=== PATIENT | female | born 1975 | race African-American/Black ===

== ENCOUNTER 2017-06-02 16:51 | Emergency (ER) | payer SELFPAY ==
[~2017-06-02 16:51] MED LIST: AMOX1TAB61 PO; HYDR-2758 PO
[2017-06-02] MEDS ORDERED: ONDANSETRON ODT 4 MG TAB.RAPDIS. PO ONE (17:15)
[2017-06-02] MEDS ORDERED: ONDANSETRON PF 4 MG/2 ML VIAL. IV ONE (17:30)
[2017-06-02] MEDS ORDERED: IV NORMAL SALINE 1000ML BAG 1,000 ML IV ONE (17:30)
[2017-06-02 17:58] LABS: CALCIUM 7.6 mg/dL (8.5-10.1); GFR 74.3; POTASSIUM 3.6 mmol/L (3.5-5.1)
[2017-06-02 18:04] LABS: ALBUMIN 3.4 g/dL (3.4-5.0); ALBUMIN/GLOBULIN RATIO 0.7 (1.0-1.7); TOTAL BILIRUBIN 0.1 mg/dL (0.2-1.0); TOTAL PROTEIN 8.1 g/dL (6.4-8.2)
--- NOTE | 2017-06-02 18:05 | PHYS DOC ---
Past Medical History Past Medical History: Other Additional Past Medical Histor: eczema; herpes Past Surgical History: Alcohol Use: Occasionally Additional Information: DRINKING DAILY PER PATIENT REPORT Drug Use: None Social History Narrative: PT REFUSES TO ANSWER,STATES,"THAT'S TOO MUCH INFORMATION." Adult General Chief Complaint Chief Complaint: ALCOHOL INTOXICATION HPI HPI Patient is a 41 year old female who presents with alcohol intoxication. The patient states she drank a can of "punch" with alcohol today, states she suddenly felt unusual & nauseated. She refuses to state how much she drinks daily but states she does drink heavily. She reports history of drug addiction but denies current drug use. She denies trauma, fall, vomiting, abdominal pain. She denies suicidal ideation. She states she has history of situational anxiety. Review of Systems Review of Systems Constitutional: Denies fever or chills HENT: Denies nasal congestion or sore throat Respiratory: Denies cough or shortness of breath Cardiovascular: Denies chest pain GI: Reports nausea, denies abdominal pain or vomiting : Denies dysuria Musculoskeletal: Denies back pain or joint pain Integument: Denies rash Neurologic: Denies headache, focal weakness or sensory changes Current Medications Current Medications Current Medications Medications (Trade) Dose Ordered Sig/Dheeraj Start Time Stop Time Status Last Admin Dose Admin Ondansetron HCl (Zofran Odt) 4 mg 1X ONCE 06/02/17 17:15 06/02/17 17:16 DC 06/02/17 17:20 4 MG Ondansetron HCl (Zofran) 4 mg 1X ONCE 06/02/17 17:30 06/02/17 17:31 DC 06/02/17 17:52 4 MG Sodium Chloride 1,000 ml @ 1,000 mls/hr 1X ONCE 06/02/17 17:30 06/02/17 18:29 DC 06/02/17 17:49 1,000 MLS/HR Allergies Allergies Allergies Coded Allergies Type Severity Reaction Last Updated Verified No Known Drug Allergies 05/31/15 No Physical Exam Physical Exam Constitutional: Well developed, well nourished, no acute distress, non-toxic appearance. HENT: Normocephalic, atraumatic, bilateral external ears normal, oropharynx moist, nose normal. Eyes: conjunctiva normal, no discharge. Neck: supple, no stridor. Cardiovascular: RRR, no murmurs, no edema. Lungs & Thorax: LCATB, no wheezing, no respiratory distress. Abdomen: soft, nontender, nondistended. Skin: no rash. Extremities: No deformity Neurologic: Alert and oriented X 3, no focal deficits noted. Psychologic: paranoid, anxious Current Patient Data Vital Signs Vital Signs Date Time Temp Pulse Resp B/P (MAP) Pulse Ox O2 Delivery O2 Flow Rate FiO2 06/02/17 20:15 98.5 105 15 99/59 (72) 97 Room Air 98.5 Lab Values Laboratory Tests Test 06/02/17 17:35 Sodium Level 142 mmol/L (136-145) Potassium Level 3.6 mmol/L (3.5-5.1) Chloride Level 106 mmol/L (98-107) Carbon Dioxide Level 23 mmol/L (21-32) Anion Gap 13 (6-14) Blood Urea Nitrogen 10 mg/dL (7-20) Creatinine 1.0 mg/dL (0.6-1.0) Estimated GFR (Cockcroft-Gault) 74.3 BUN/Creatinine Ratio 10 (6-20) Glucose Level 97 mg/dL (70-99) Calcium Level 7.6 mg/dL (8.5-10.1) L Total Bilirubin 0.1 mg/dL (0.2-1.0) L Aspartate Amino Transferase (AST) 30 U/L (15-37) Alanine Aminotransferase (ALT) 20 U/L (14-59) Alkaline Phosphatase 87 U/L (46-116) Total Protein 8.1 g/dL (6.4-8.2) Albumin 3.4 g/dL (3.4-5.0) Albumin/Globulin Ratio 0.7 (1.0-1.7) L Salicylates Level < 2.8 mg/dL (2.8-20.0) L Salicylate Last Dose Date Unk Salicylate Last Dose Time Unk Acetaminophen Level < 10 mcg/ml (10-30) L Acetaminophen Last Dose Date Unk Acetaminophen Last Dose Time Unk Ethyl Alcohol Level 280 mg/dL (0-10) H Laboratory Tests 06/02/17 17:35 EKG EKG interpreted by me: sinus tachycardia rate 112, no acute ST/T wave changes, normal intervals, no ectopy. some artifact.[] Radiology/Procedures Radiology/Procedures [] Course & Med Decision Making Course & Med Decision Making Pertinent Labs and Imaging studies reviewed. (See chart for details) The patient presents with alcohol intoxication & she is paranoid here. Gave IV fluids & zofran. Consulted PAT team & she declined detox or other services. She is not suicidal. Her heart rate briefly increased to 120s. Obtained EKG & observed. Her heart rate improved to 105 & she was asymptomatic. Recommend rest, hydration, avoid excessive alcohol consumption. Follow up with PCP in 2- 3 days & [facility] for detox if desired. Come back for suicidal thoughts or otherwise worsening condition. Discharged home in stable condition. [] Dragon Disclaimer Dragon Disclaimer This electronic medical record was generated, in whole or in part, using a voice recognition dictation system. Departure Departure Impression: Primary Impression: Alcohol intoxication Disposition: 01 HOME, SELF-CARE Condition: STABLE Referrals: NO PCP (PCP) Patient Instructions: Alcohol Intoxication, [id number] Additional Instructions: You were seen in the emergency department today for alcohol intoxication. You received additional resources for detox. Please avoid drinking in excess. Follow up with a primary care doctor in 2-3 days. Come back for suicidal thoughts or otherwise worsening condition. Problem Qualifiers Primary Impression: Alcohol intoxication Complication of substance-induced condition: uncomplicated Qualified Codes: F10.920 - Alcohol use, unspecified with intoxication, uncomplicated PETRONA MOODY MD Jun 02, 2017 18:05
[2017-06-02 18:06] LABS: ETHANOL 280 mg/dL (0-10)
[2017-06-02 20:15] VITALS: BP 99/59
--- NOTE | 2017-06-03 06:25 | EKG ---
[facility] [address] [place] [address] Test Date: 2017-06-02 Test Time: 19:54:56 Pat Name: MICHELLE SAMUEL Department: Room: Gender: F Cook Pressure: : 1975 Requested By: PETRONA MOODY Order Number: [id number] Reading MD: Ramses Goncalves Measurements Intervals [place] Rate: 112 P: 49 FL: 130 QRS: 51 QRSD: 62 T: 27 QT: 332 QTc: 455 Interpretive Statements SINUS TACHYCARDIA Electronically Signed On 06-07-2017 9:38:41 CDT by Ramses Goncalves
== END 2017-06-02 20:15 | disposition home or self-care (01) ==
LOC: ER 16:53
DX: F10.120 Alcohol abuse with intoxication, uncomplicated (principal); F22 Delusional disorders; F41.9 Anxiety disorder, unspecified; Y90.8 Blood alcohol level of 240 mg/100 ml or more
CPT/HCPCS: 36415; 80053; 80329; 93005; 96361; 96374; 99285; G0480; J2405; J7030; Q0162

== ENCOUNTER 2020-12-02 19:22 | Emergency (ER) | payer SELFPAY ==
[~2020-12-02 19:22] MED LIST changes: -HYDR-2758 PO; +HYDR-2761 PO
== END 2020-12-02 20:50 | disposition left against medical advice (07) ==
LOC: ER 19:22
DX: R10.30 Lower abdominal pain, unspecified (principal); Z53.21 Procedure and treatment not carried out due to patient leaving prior to being seen by health care provider
CPT/HCPCS: 81025